=== PATIENT | female | born 1960 | race Caucasian/White ===

== ENCOUNTER → 2016-08-28 | Outpatient (CLI) | payer SELFPAY ==
[~2016-08-28] VITALS: Ht 162.6 cm; Wt 85.9 kg
[~2016-08-28] MED LIST: AMOXICILLIN 8751 TAB PO; CALCIUM 600 PLU1 TAB; CELEXA40 MG PO; CHERATUSSIN AC120 ML PO; FLEXERIL 1010 MG/TAB PO; MULTI VITAMINS1 TAB PO; NATURAL IRON65 MG PO; PREDNISONE20 MG PO; STOOL SOFTENER100 M2 PO; ULTRAM 50MG TAB50 MG PO; ZITHROMAX 250M250 MG PO
[2016-08-28 14:38] VITALS: BP 112/55; PULSE 55; TEMP 98.4
== END ==
LOC: COL.ER 12:37 → EDSTATUS 12:50 → EUO 12:53
DX: I95.0 Idiopathic hypotension (principal)
CPT/HCPCS: J7030

== ENCOUNTER 2017-04-23 10:21 | Outpatient (CLI) | payer MEDICAID ==
[~2017-04-23] VITALS: Ht 165.2 cm; Wt 91.8 kg
[2017-04-23] MEDS ORDERED: TYLENOL 500MG500 MG PO (10:58)
[2017-04-23] MEDS ORDERED: PROAIR HFA0.09 MG/AC INH (11:00)
[2017-04-23] MEDS ORDERED: ALBUTEROL0.83 MG/ML INH (11:03)
[2017-04-23] MEDS ORDERED: COLACE 100100 MG/CAP PO (11:04)
[2017-04-23] MEDS ORDERED: MUCINEX 60600 MG/TA1 PO (11:05)
[2017-04-23] MEDS ORDERED: MULTI VITAMINS1 TAB PO (11:07)
[2017-04-23] MEDS ORDERED: PRILOSEC 20MG20 MG PO (11:08)
[2017-04-23] MEDS ORDERED: ZOLOFT 100MG100 MG PO (11:09)
[2017-04-23] MEDS ORDERED: ASPIRIN 81M81 MG/TA2 PO (11:13)
[2017-04-23 11:23] VITALS: BP 114/45; PULSE 57; TEMP 97.8
[2017-04-23] MEDS ORDERED: TOPROL XL 25MG25 MG PO (12:44)
[2017-04-23] MEDS ORDERED: PROAMATINE10 MG PO (12:45)
[2017-04-23 12:55] VITALS: BP 113/44; PULSE 50; TEMP 97.5
[2017-04-23 13:10] VITALS: BP 98/53; PULSE 73
[2017-04-23 13:25] VITALS: BP 110/60; PULSE 86
[2017-04-23 13:40] VITALS: BP 121/56; PULSE 50
== END 2017-04-23 14:05 | disposition home or self-care (01) ==
LOC: COL.CAR 10:21
DX: R55 Syncope and collapse (principal); I27.20 Pulmonary hypertension, unspecified; K21.0 Gastro-esophageal reflux disease with esophagitis; K44.9 Diaphragmatic hernia without obstruction or gangrene; G47.33 Obstructive sleep apnea (adult) (pediatric); I34.0 Nonrheumatic mitral (valve) insufficiency; Z87.891 Personal history of nicotine dependence; F32.9 Major depressive disorder, single episode, unspecified; F41.9 Anxiety disorder, unspecified; Z82.49 Family history of ischemic heart disease and other diseases of the circulatory system; Z68.36 Body mass index [BMI] 36.0-36.9, adult